=== PATIENT | male | born 1990 | race Caucasian/White ===

== ENCOUNTER 2024-02-09 12:32 | Emergency (ER) | payer OTHER ==
[~2024-02-09] VITALS: Ht 177.8 cm; Wt 75.9 kg
[2024-02-09] MEDS ORDERED: PROPRANOLOL HCL10 MG PO (12:47)
[2024-02-09] MEDS ORDERED: EFFEXOR XR75 MG PO (12:48)
[2024-02-09] MEDS ORDERED: REMERON15 MG PO (12:48)
[2024-02-09] MEDS ORDERED: HYDROXYZINE HCL25 MG PO (12:49)
[2024-02-09 12:58] LABS: BASOPHILS 0.2 % (0-2); EOSINOPHILS 0.1 % (0-6); HEMATOCRIT 44.8 % (35.0-50.0); HEMOGLOBIN 15.4 g/dL (12.0-18.0); LYMPHOCYTES 10.3 % (24-44); MCH 30.2 (27-36); MCHC 34.3 g/dl (30-36); MONOCYTES 4.6 % (0-12); NEUTROPHILS 84.8 % (39-80); PLATELET COUNT 279 K/uL (140-440); RBC 5.09 M/ul (4.3-5.7); RDW 13.6 (10.5-15.0)
[2024-02-09] MEDS ORDERED: PANTOPRAZOLE SODIUM 40 MG/10 ML VIAL IV ONE (13:00)
[2024-02-09] MEDS ORDERED: SODIUM CHLORIDE 0.9% 1,000 ML IV ONE (13:00)
[2024-02-09] MEDS ORDERED: ondansetron HCL 4 MG/2 ML VIAL IV ONE (13:00)
[2024-02-09] MEDS ORDERED: KETOROLAC TROMETHAMINE 30 MG/ML VIAL IV ONE (13:00)
[2024-02-09 13:10] LABS: ALBUMIN 4.1 g/dL (3.4-5.0); ALBUMIN/GLOBULIN RATIO 1.03 (1.1-2.4); ANION GAP 16.5 (7-21); BILIRUBIN, TOTAL 0.6 ng/dL (0.2-1.0); BUN/CREATININE RATIO 12.28 (6.0-28.6); CALCIUM 9.4 mg/dL (8.5-10.1); CREATININE, SERUM 1.14 mg/dL (0.70-1.30); POTASSIUM 3.5 mmol/L (3.5-5.1); PROTEIN, TOTAL 8.1 g/dL (6.4-8.2)
[2024-02-09] MEDS ORDERED: droPERidol 5 MG/2 ML VIAL IV ONE (14:00)
[2024-02-09 15:14] LABS: BILIRUBIN, URINE NEGATIVE (negative); BLOOD/HGB, URINE NEGATIVE (Negative); KETONE, URINE SMALL (Negative); LEUK ESTERASE, URINE NEGATIVE (negative); NITRITE, URINE NEGATIVE (negative); PH, URINE >=9.0 (5-7)
[2024-02-09 15:19] LABS: EPITHELIAL CELLS, URINE SQUAMOUS 1+ /lpf (0-1+)
[2024-02-09 15:20] LABS: CRYSTALS, URINE AMORPHOUS PHOSPH 1+ (0-1+); RED BLOOD CELLS, URINE 0-1 /hpf (0-5); WHITE BLOOD CELLS, URINE 0-1 /HPF (0-5)
[2024-02-09 15:21] LABS: BACTERIA, URINE NONE SEEN /hpf (negative); CASTS, URINE NONE SEEN \\lpf; COLLECTION TYPE, URINE CLEAN CATCH; REFLEX CULTURE, URINE No (No)
[2024-02-09 15:28] LABS: AMPHETAMINES, URINE NEGATIVE (NEGATIVE); BARBITURATES, URINE NEGATIVE (NEGATIVE); BENZODIAZEPINE, URINE NEGATIVE (NEGATIVE); BUPRENORPHINE, URINE NEGATIVE (NEGATIVE); CANNABINOID, URINE NEGATIVE (NEGATIVE); COCAINE, URINE NEGATIVE (NEGATIVE); ECSTASY, URINE NEGATIVE (NEGATIVE); FENTANYL, URINE NEGATIVE (NEGATIVE); METHADONE, URINE NEGATIVE (NEGATIVE); OPIATES, URINE NEGATIVE (NEGATIVE); OXYCODONE, URINE NEGATIVE (NEGATIVE); PHENCYCLIDINE, URINE NEGATIVE (NEGATIVE)
[2024-02-09] MEDS ORDERED: LIDOCAINE & ANTACID 35 ML BTL PO ONE (16:15)
[2024-02-09] MEDS ORDERED: ONDANSETRON 4 MG TAB ODT SL ONE (16:15)
[2024-02-09] MEDS ORDERED: ONDANSETRON ODT8 MG PO (16:18)
[2024-02-09 17:20] VITALS: BP 133/73
== END 2024-02-09 17:20 | disposition other institution, planned readmission (95) ==
LOC: ED 12:32
PROVIDERS: Emergency Medicine
DX: Z02.89 Encounter for other administrative examinations (principal); R10.9 Unspecified abdominal pain; R11.2 Nausea with vomiting, unspecified; Z79.899 Other long term (current) drug therapy
CPT/HCPCS: 36415; 74176; 80053; 80307; 81001; 83690; 85025; 96361; 96374; 96375; 99284-25; A9270; J1790; J1885; J2405; J2470; J7030